=== PATIENT | male | born 1995 | race African-American/Black ===

== ENCOUNTER 2018-08-10 08:27 | Emergency (ER) | payer OTHER ==
[~2018-08-10] VITALS: Ht 167.6 cm; Wt 105.2 kg
[2018-08-10 09:45] LABS: Basophils # (auto) 0 uL; Basophils % (auto) 0.3 % (0.0-2.0); Eosinophils # (auto) 0 uL; Eosinophils % (auto) 0.3 % (0.0-7.0); Hematocrit 43.9 % (41.0-53.0); Hemoglobin 14.9 g/dL (13.5-17.5); Lymphocytes # (auto) 1.6 uL; Lymphocytes % (auto) 21.8 % (10.0-50.0); Mean Corpuscular Hemoglobin 30.9 pg (28.0-32.0); Mean Corpuscular Hgb Conc. 33.9 g/dL (32.0-36.0); Mean Corpuscular Volume 91.2 fL (80.0-100.0); Monocytes # (auto) 0.4 uL; Monocytes % (auto) 5.9 % (0.0-12.0); Neutrophils # (auto) 5.1 uL; Neutrophils % (auto) 71.7 % (37.0-80.0); Nucleated Red Blood Cells % 0.1 %; Red Blood Cells 4.82 10^6/uL (4.5-5.90); Red Cell Distribution Width 13.9 % (11.8-14.3); White Blood Cell 7.1 10^3/uL (4.4-10.8)
[2018-08-10 09:56] LABS: Albumin 3.8 g/dL (3.4-5.0); BUN/Creatinine Ratio 12.4; Bilirubin, Total 0.4 mg/dL (0.2-1.0); Potassium 3.6 mmol/L (3.5-5.1); Total Protein 7.5 g/dL (6.4-8.2)
[2018-08-10 10:04] LABS: Platelet Count (auto) 114 10^3/uL (140-450)
[2018-08-10 10:29] LABS: Urine Bacteria NONE SEEN /hpf (None Seen); Urine Blood Negative /uL (Negative); Urine Specific Gravity 1.004 (1.001-1.035); Urine WBC 2 /hpf (0 - 3)
[2018-08-10] MEDS ORDERED: SODIUM CHLORIDE 0.9% 1,000 ML IVB ONE (11:20)
[2018-08-10 11:31] VITALS: BP 130/50
[2018-08-10] MEDS ORDERED: ONDANSETRON HCL 4 MG/2 ML VIAL IV ONE (12:30)
== END 2018-08-10 13:33 | disposition home or self-care (01) ==
LOC: ER 08:27
DX: K52.9 Noninfective gastroenteritis and colitis, unspecified (principal); R62.59 Other lack of expected normal physiological development in childhood; Q99.8 Other specified chromosome abnormalities
CPT/HCPCS: 36415; 80053; 81001; 83690; 85025; 94761; 96361; 96374; 99285; J2405; J7030; 96360

== ENCOUNTER 2019-08-09 15:06 | Emergency (ER) | payer MEDICAID ==
[~2019-08-09] VITALS: Ht 172.7 cm; Wt 79.8 kg
[2019-08-09 15:14] VITALS: BP 119/77
[2019-08-09 16:05] LABS: Basophils # (auto) 0 uL; Basophils % (auto) 0.8 % (0.0-2.0); Eosinophils # (auto) 0.1 uL; Eosinophils % (auto) 1.8 % (0.0-7.0); Hematocrit 42.6 % (41.0-53.0); Hemoglobin 14.3 g/dL (13.5-17.5); Lymphocytes % (auto) 34.5 % (10.0-50.0); Mean Corpuscular Hemoglobin 30.2 pg (28.0-32.0); Mean Corpuscular Hgb Conc. 33.6 g/dL (32.0-36.0); Mean Corpuscular Volume 89.8 fL (80.0-100.0); Monocytes # (auto) 0.3 uL; Monocytes % (auto) 5.7 % (0.0-12.0); Neutrophils # (auto) 3.3 uL; Neutrophils % (auto) 57.2 % (37.0-80.0); Nucleated Red Blood Cells % 0.2 %; Red Blood Cells 4.74 10^6/uL (4.5-5.90); Red Cell Distribution Width 13.5 % (11.8-14.3); White Blood Cell 5.7 10^3/uL (4.4-10.8)
[2019-08-09 16:09] LABS: Platelet Count (auto) 109 10^3/uL (140-450)
[2019-08-09 16:10] LABS: Alanine Aminotransferase 233 U/L (16-61); Albumin 3.8 g/dL (3.4-5.0); Anion Gap 4 (5-15); Aspartate Aminotransferase 96 U/L (15-37); BUN/Creatinine Ratio 10.8; Blood Urea Nitrogen 10 mg/dL (7-18); Calcium 8.9 mg/dL (8.5-10.1); Carbon Dioxide 30 mmol/L (21-32); Chloride 107 mmol/L (98-107); GFR African American 127 mL/min; GFR Non-African American 105 mL/min; Glucose 113 mg/dL (74-106); Potassium 3.6 mmol/L (3.5-5.1); Sodium 141 mmol/L (136-145)
[2019-08-09 16:15] LABS: Alkaline Phosphatase 102 U/L (45-117); Bilirubin, Total 0.4 mg/dL (0.2-1.0); Total Protein 7.4 g/dL (6.4-8.2)
== END 2019-08-09 21:32 | disposition left against medical advice (07) ==
LOC: EDBD 15:06 → ER 15:06
DX: R55 Syncope and collapse (principal); Z53.21 Procedure and treatment not carried out due to patient leaving prior to being seen by health care provider
CPT/HCPCS: 36415; 70450; 71046; 80053; 84484; 85025; 93005

== ENCOUNTER 2019-12-07 18:15 | Emergency (ER) | payer MEDICAID ==
[~2019-12-07] VITALS: Ht 170.2 cm; Wt 77.1 kg
[2019-12-07] MEDS ORDERED: TETANUS-DIPTH-ACEL PERTUSSIS 0.5ML SYRG IM ONE (19:30)
[2019-12-07 22:38] LABS: Basophils # (auto) 0.1 uL; Basophils % (auto) 0.8 % (0.0-2.0); Eosinophils # (auto) 0 uL; Eosinophils % (auto) 0.3 % (0.0-7.0); Hematocrit 41.1 % (41.0-53.0); Hemoglobin 13.9 g/dL (13.5-17.5); Lymphocytes # (auto) 2.3 uL; Lymphocytes % (auto) 24.3 % (10.0-50.0); Mean Corpuscular Hemoglobin 30.8 pg (28.0-32.0); Mean Corpuscular Hgb Conc. 33.8 g/dL (32.0-36.0); Mean Corpuscular Volume 91.1 fL (80.0-100.0); Monocytes # (auto) 0.8 uL; Monocytes % (auto) 8.8 % (0.0-12.0); Neutrophils # (auto) 6.2 uL; Neutrophils % (auto) 65.8 % (37.0-80.0); Nucleated Red Blood Cells % 0.1 %; Platelet Count (auto) 159 10^3/uL (140-450); Red Blood Cells 4.51 10^6/uL (4.5-5.90); Red Cell Distribution Width 14.2 % (11.8-14.3); White Blood Cell 9.4 10^3/uL (4.4-10.8)
[2019-12-07 23:02] LABS: Albumin 3.7 g/dL (3.4-5.0); BUN/Creatinine Ratio 13.9; Calcium 8.8 mg/dL (8.5-10.1); Potassium 3.6 mmol/L (3.5-5.1)
[2019-12-07 23:05] LABS: Bilirubin, Total 0.4 mg/dL (0.2-1.0); Total Protein 7.3 g/dL (6.4-8.2)
[2019-12-08 09:42] LABS: Urine Bacteria NONE SEEN /hpf (None Seen); Urine Blood Negative /uL (Negative); Urine Specific Gravity 1.019 (1.001-1.035); Urine WBC 1 /hpf (0 - 3)
[2019-12-08 09:56] LABS: Alcohol, Urine < 3.0 mg/dL (0-5); Amphetamine Screen, Urine NEGATIVE (NEGATIVE); Barbiturate Scree,Urine NEGATIVE (NEGATIVE); Benzodiazephine Screen, Urine NEGATIVE (NEGATIVE); Cannabinoid Screen, Urine NEGATIVE (NEGATIVE); Cocaine Screen, Urine NEGATIVE (NEGATIVE); Opiate Scree,Urine NEGATIVE (NEGATIVE); Phencyclidine Screen, Urine NEGATIVE (NEGATIVE)
[2019-12-08 10:03] VITALS: BP 119/79
== END 2019-12-08 10:03 | disposition home or self-care (01) ==
LOC: EDBD 18:15 → EDUNIT# 18:15 → ER 18:18
DX: S00.411A Abrasion of right ear, initial encounter (principal); S00.412A Abrasion of left ear, initial encounter; S60.221A Contusion of right hand, initial encounter; F20.9 Schizophrenia, unspecified; X58.XXXA Exposure to other specified factors, initial encounter; Y08.89XA Assault by other specified means, initial encounter; Y93.89 Activity, other specified; Y92.89 Other specified places as the place of occurrence of the external cause; Y99.8 Other external cause status
CPT/HCPCS: 36415; 73110; 73120; 80053; 80164; 80307; 80320; 81001; 85025; 90471; 90715; 96372

== ENCOUNTER 2021-03-05 11:13 | Emergency (ER) | payer MEDICAID ==
[~2021-03-05] VITALS: Ht 162.6 cm; Wt 98.9 kg
[2021-03-05 11:21] VITALS: BP 102/69
[2021-03-05] MEDS ORDERED: ACETAMINOPHEN 325 MG TAB PO ONE (12:30)
[2021-03-05] MEDS ORDERED: cefTRIAXone SOD 1,000 MG VL IM ONE (12:30)
== END 2021-03-05 12:52 | disposition home or self-care (01) ==
LOC: ER 11:13
DX: J03.90 Acute tonsillitis, unspecified (principal); T88.1XXA Other complications following immunization, not elsewhere classified, initial encounter
CPT/HCPCS: 96372; 99283; J0696